=== PATIENT | female | born 1995 ===

== ENCOUNTER 2017-02-24 19:16 | Emergency (ER) | payer BC ==
[2017-02-24 19:34] VITALS: BP 132/64
[2017-02-24] MEDS ORDERED: Lidocaine 1% 30 ML SDV INJECT ONE (19:40)
[2017-02-24] MEDS ORDERED: Clindamycin HCl 150 MG Cap PO ONE ×2 (20:00→20:19)
--- NOTE | 2017-02-24 20:08 | EDM.PDOC ---
ED HPI GENERAL MEDICAL PROBLEM - General Chief Complaint: Skin Complaint Stated Complaint: LUMP ON BACK, [id number] Time Seen by Provider: 02/24/17 19:44 Source of Information: Reports: Patient History Limitations: Reports: No Limitations - History of Present Illness INITIAL COMMENTS - FREE TEXT/NARRATIVE: This 21 yo female patient reports to the ED with an abscess on her right back ( below her shoulder blade). The patient reports she noticed a small pimple on Sunday (02/19/17). The patient reports she "popped" the pimple on Sunday. Since that time, the patient has noticed the area was getting more swollen and has been very painful. The patient reports she has not been seen in the clinic, but was trying to wait until Sunday until the pain got too bad. Onset: Gradual Onset Date: 02/19/17 Duration: Constant, Getting Worse Location: Reports: Back Quality: Reports: Ache, Sharp Severity: Moderate Improves with: Reports: None Worsens with: Reports: None Associated Symptoms: Reports: No Other Symptoms Right Middle Back Pain Score (Numeric/FACES): 7 - Related Data Allergies Allergy/AdvReac Type Severity Reaction Status Date / Time cefprozil [From Cefzil] Allergy Rash Verified 02/24/17 19:34 Home Meds: Home Meds . [No Known Home Meds] 02/24/17 [History] Social & Family History - Tobacco Use Smoking Status *Q: Unknown Ever Smoked Second Hand Smoke Exposure: No - Caffeine Use Caffeine Use: Reports: Coffee, Soda - Recreational Drug Use Recreational Drug Use: No ED ROS GENERAL - Review of Systems Review Of Systems: ROS reveals no pertinent complaints other than HPI. ED EXAM, SKIN/RASH Exam: See Below Exam Limited By: No Limitations General Appearance: Alert, WD/WN, Moderate Distress, Thin Eye Exam: Bilateral Eye: EOMI, Normal Inspection, PERRL Ears: Normal External Exam, Normal Canal, Hearing Grossly Normal, Normal TMs Nose: Normal Inspection, Normal Mucosa, No Blood Throat/Mouth: Normal Inspection, Normal Lips, Normal Teeth, Normal Gums, Normal Oropharynx, Normal Voice, No Airway Compromise Head: Atraumatic, Normocephalic Neck: Normal Inspection, Supple, Non-Tender, Full Range of Motion Respiratory/Chest: No Respiratory Distress, Lungs Clear, Normal Breath Sounds, No Accessory Muscle Use, Chest Non-Tender Cardiovascular: Normal Peripheral Pulses, Regular Rate, Rhythm, No Edema, No Gallop, No JVD, No Murmur, No Rub GI/Abdominal: Normal Bowel Sounds, Soft, Non-Tender, No Organomegaly, No Distention, No Abnormal Bruit, No Mass (Female) Exam: Deferred Rectal (Female) Exam: Deferred Back Exam: Full Range of Motion Extremities: Normal Inspection, Normal Range of Motion, Non-Tender, No Pedal Edema, Normal Capillary Refill Neurological: Alert, Oriented, CN II-XII Intact, Normal Cognition, Normal Gait, Normal Reflexes, No Motor/Sensory Deficits Psychiatric: Normal Affect, Normal Mood Skin: Erythema, Increased Warmth Location, Skin: Back (below right shoulder blade) Characteristics: Erythematous Associated features: Warmth, Tenderness, Wwelling, Induration Lymphatic: No Adenopathy ED SKIN PROCEDURES - I&D Site: right back Skin prep: Providone-Iodine (Betadine), Isopropyl Alcohol (Alcohol) Local anesthesia: Lidocaine: 1% Plain Local Anesthetic Volume: 4cc Area Incised With: 15 Blade Drainage: Purulent, Bloody, Moderate Amount Probed to Break Up Loculations: Yes Packed With: None Sterile Dressing: Adhesive Dressing Complications: No Course - Vital Signs Last Recorded V/S: Last Vital Signs Temp 36.2 C 02/24/17 19:32 Pulse 112 H 02/24/17 19:32 Resp 16 02/24/17 19:32 BP 132/64 02/24/17 19:32 Pulse Ox 100 02/24/17 19:32 - Orders/Labs/Meds Orders: Active Orders 24 hr Category Date Time Status CULTURE WOUND [RM] Stat Lab 02/24/17 20:00 Ordered Meds: Medications Discontinued Medications Generic Name Dose Route Start Last Admin Trade Name Mesfin PRN Reason Stop Dose Admin Clindamycin HCl 300 mg 02/24/17 20:00 Cleocin PO 02/24/17 20:01 ONETIME ONE Lidocaine HCl 30 ml 02/24/17 19:40 02/24/17 19:45 Xylocaine-Mpf 1% INJECT 02/24/17 19:41 30 ml ONETIME ONE Administration Departure - Departure Time of Disposition: 20:11 Disposition: Home, Self-Care 01 Condition: fair Clinical Impression: Abscess - Discharge Information Instructions: Incision and Drainage, Abscess, [id number] Forms: ED Department Discharge Care Plan Goals: The patient was advised of the examination results during the visit. The abscess was incised and drained while in the ED. The patient was given an oral dose of Clindamycin while in the ED. The patient was discharged with Clindamycin (150 mg) #2 to take 2 in the morning and a script for Clindamycin ( 300 mg) #30 to take 1 by mouth 3 times per day. If the patient has any additional symptoms or concerns, the patient should follow-up with her primary care facility or return to the emergency department. - My Orders Last 24 Hours: My Active Orders 02/24/17 20:00 CULTURE WOUND [RM] Stat - Assessment/Plan Last 24 Hours: My Active Orders 02/24/17 20:00 CULTURE WOUND [RM] Stat
[2017-02-24] MEDS ORDERED: Clindamycin HCl 150 MG Cap ONE (20:19)
== END 2017-02-24 20:23 | disposition home or self-care (01) ==
LOC: DL.ED 19:16
DX: L02.212 Cutaneous abscess of back [any part, except buttock and flank] (principal); Z88.1 Allergy status to other antibiotic agents
CPT/HCPCS: 10060; 87070; 87077; 87186; 99283; A9270